=== PATIENT | male | born 1955 | race Caucasian/White ===

== ENCOUNTER 2021-10-26 14:46 | Emergency (ER) | payer OTHER ==
[2021-10-26] MEDS ORDERED: Aspirin 81 MG Tab.Chew PO ONE (15:16)
[2021-10-26 15:40] LABS: ESTIMATED GFR 42 mL/min (>60)
== END 2021-10-26 17:00 | disposition home or self-care (01) ==
LOC: JD.ED 14:46
DX: R07.2 Precordial pain (principal); E86.0 Dehydration; N28.9 Disorder of kidney and ureter, unspecified
CPT/HCPCS: 36415; 71045; 80053; 84484; 85025; 85379; 85610; 85652; 85730; 86140; 93005; 99285; A9270